=== PATIENT | male | born 1995 | race Caucasian/White ===

== ENCOUNTER 2017-04-08 13:05 | Emergency (ER) | payer BC ==
[2017-04-08 15:35] VITALS: BP 117/55
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
== END 2017-04-08 17:37 | disposition home or self-care (01) ==
LOC: UCEAST 13:05
DX: F12.90 Cannabis use, unspecified, uncomplicated (principal); Z87.891 Personal history of nicotine dependence; S51.002A Unspecified open wound of left elbow, initial encounter; S20.419A Abrasion of unspecified back wall of thorax, initial encounter; V18.0XXA Pedal cycle driver injured in noncollision transport accident in nontraffic accident, initial encounter; Y93.55 Activity, bike riding; Y92.9 Unspecified place or not applicable
CPT/HCPCS: 99212; G0463

== ENCOUNTER 2017-04-11 08:36 | Day surgery (SDC) | payer BC ==
[~2017-04-11 08:36] MED LIST: Buffered Lidocaine 0.9% SYRIN* 5 ML/SYR SYRINGE INTRADERM ONE
[2017-04-11] MEDS ORDERED: ceFAZolin 2 GM PREMIX(*) 2 GM/50 ML BAG IVPB ONE (09:44)
[2017-04-11] MEDS ORDERED: Midazolam* 1 MG/ML 5 ML VIAL (5 MG) ONE (13:50)
[2017-04-11] MEDS ORDERED: fentaNYL* 50 MCG/ML 2 ML VIAL (100 MCG VIAL) ONE (13:50)
[2017-04-11] MEDS ORDERED: Bupivacaine 0.25% SDV* 30 ML ONE (14:12)
[2017-04-11] MEDS ORDERED: Propofol* 10 MG/ML 20 ML BTL IV PUSH ONE (14:36)
[2017-04-11] MEDS ORDERED: Acetaminophen IV 1GM/100ML * 100 ML IVPB ONE (14:46)
[2017-04-11] MEDS ORDERED: Ondansetron INJ* 2 MG/ML VIAL IV PRN (14:46)
[2017-04-11 15:31] VITALS: BP 119/63
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
== END 2017-04-11 15:40 | disposition home or self-care (01) ==
LOC: OREAST 08:36
PROVIDERS: ATTEND Orthopaedic Surgery Hand Surgery
DX: S51.022A Laceration with foreign body of left elbow, initial encounter (principal); Y93.55 Activity, bike riding; Y92.39 Other specified sports and athletic area as the place of occurrence of the external cause
CPT/HCPCS: J0690; J2250; J2704; J3010